=== PATIENT | female | born 1990 | race Caucasian/White ===

== ENCOUNTER 2016-09-30 22:00 | Emergency (ER) | payer SELFPAY ==
[2016-09-30 22:19] VITALS: BP 104/67
--- NOTE | 2016-09-30 22:33 | ER Document Report ---
ED Medical Screen (RME) - General Stated Complaint: ABDOMINAL PAIN Time seen by provider: 22:30 Mode of Arrival: Medic Information source: Patient Notes: 26-year-old female presents to ED for abdominal pain since about 8:30 tonight. She states this started out: CROSSED at the bottom where her scar is. Now it is mostly on the right side going up to the upper right. She states that the pain is sharp and when she moves it becomes much worse. States her pain is a 3 out of 5 constant and a 5 out of 5 at the worst. Patient has a Mirena and does not have menstrual periods. She has vomited once after the pain started but no nausea since then. I have greeted and performed a rapid initial assessment of this patient. A comprehensive ED assessment and evaluation of the patient, analysis of test results and completion of medical decision making process will be conducted by an additional ED providers. - Related Data Allergies/Adverse Reactions: No Known Allergies Allergy (Unverified 09/30/16 22:30) Physical Exam - Vital signs Vitals: Temp Pulse BP Pulse Ox 98.2 F 83 104/67 99 09/30/16 22:18 09/30/16 22:18 09/30/16 22:18 09/30/16 22:18 Course - Vital Signs Vital signs: Temp Pulse Resp BP Pulse Ox 98.2 F 83 104/67 99 09/30/16 22:18 09/30/16 22:18 09/30/16 22:18 09/30/16 22:18
[2016-09-30] MEDS ORDERED: ACETAMINOPHEN 325 MG TABLET PO ONE (22:34)
[2016-09-30 22:56] LABS: ABSOLUTE BASOPHILS # (AUTO) 0.1 10^3/uL (0.0-0.2); ABSOLUTE EOSINOPHILS # (AUTO) 0.2 10^3/uL (0.0-0.6); ABSOLUTE LYMPHOCYTES (AUTO) 1.8 10^3/uL (0.5-4.7); ABSOLUTE MONOCYTES (AUTO) 0.6 10^3/uL (0.1-1.4); ABSOLUTE NEUT (AUTO) 11.3 10^3/uL (1.7-8.2); BASOPHILS % (AUTO) 0.5 % (0-2); EOSINOPHILS % (AUTO) 1.2 % (0-6); HEMATOCRIT 38.7 % (36.0-47.0); HEMOGLOBIN 13.3 g/dL (12.0-15.5); HGB HCT DIFFERENCE 1.2; LYMPHOCYTES % (AUTO) 12.8 % (13-45); MEAN CORPUSCULAR HEMOGLOBIN 31.4 pg (27.0-33.4); MEAN CORPUSCULAR HGB CONC 34.3 g/dL (32.0-36.0); MEAN CORPUSCULAR VOLUME 92 fl (80-97); MONOCYTES % (AUTO) 4.4 % (3-13); RED BLOOD COUNT 4.23 10^6/uL (3.72-5.28); RED CELL DISTRIBUTION WIDTH 12.6 % (11.5-14.0); SEGMENTED NEUTROPHILS % (AUTO) 81.1 % (42-78); WHITE BLOOD COUNT 13.9 10^3/uL (4.0-10.5)
[2016-09-30 23:01] LABS: APPEARANCE,URINE CLEAR; BILIRUBIN,URINE NEGATIVE (NEGATIVE); GLUCOSE, URINE NEGATIVE (NEGATIVE); KETONES,URINE NEGATIVE (NEGATIVE); LEUKOCYTE ESTERASE,URINE NEGATIVE (NEGATIVE); NITRITE,URINE NEGATIVE (NEGATIVE); PROTEIN,URINE NEGATIVE (NEGATIVE); URINE SPECIFIC GRAVITY 1.015
[2016-09-30 23:09] LABS: ALANINE AMINOTRANSFERASE 33 U/L (9-52); ALBUMIN 4.8 g/dL (3.5-5.0); ALKALINE PHOSPHATASE 64 U/L (38-126); ANION GAP 12 (5-19); ASPARTATE AMINO TRANSFERASE 21 U/L (14-36); BILIRUBIN,TOTAL 0.5 mg/dL (0.2-1.3); BLOOD UREA NITROGEN 12 mg/dL (7-20); CALCIUM 9.8 mg/dL (8.4-10.2); CARBON DIOXIDE 21 mmol/L (22-30); CHLORIDE 107 mmol/L (98-107); CREATININE RESULT 0.56 mg/dL (0.52-1.25); GLUCOSE 96 mg/dL (75-110); POTASSIUM 4.3 mmol/L (3.6-5.0); SODIUM 139.7 mmol/L (137-145); TOTAL PROTEIN 7.5 g/dL (6.3-8.2)
== END 2016-10-01 01:07 | disposition left against medical advice (07) ==
LOC: ER 22:00
DX: R10.9 Unspecified abdominal pain (principal); R11.10 Vomiting, unspecified; Z97.5 Presence of (intrauterine) contraceptive device; Z53.20 Procedure and treatment not carried out because of patient's decision for unspecified reasons
CPT/HCPCS: 36415; 80053; 81001; 84703; 85025; 99281

== ENCOUNTER 2018-12-26 21:52 | Emergency (ER) | payer SELFPAY ==
[2018-12-26] MEDS ORDERED: DIPH/PERTUSS(ACELL)/TETANUS VAC/PF 0.5 ML SYR (>=10YO) IM ONE (22:43)
--- NOTE | 2018-12-26 22:48 | ER Document Report ---
ED Medical Screen (RME) - General Chief Complaint: Laceration Stated Complaint: FINGER LACERATION Time Seen by Provider: 12/26/18 22:36 Notes: 28-year-old female, chief complaint of accidentally cutting off the tip of her right middle finger. She is right-handed. Not up-to-date on tetanus. Denies any complaints. Denies any daily medications. TRAVEL OUTSIDE OF THE [place] IN LAST 30 DAYS: No - Related Data Allergies/Adverse Reactions: No Known Allergies Allergy (Unverified 09/30/16 22:30) Past Medical History Renal/ Medical History: Denies: Hx Peritoneal Dialysis Physical Exam - Vital signs Vitals: Temp Pulse Resp BP Pulse Ox 98.1 F 96 20 122/73 98 12/26/18 22:13 12/26/18 22:13 12/26/18 22:13 12/26/18 22:13 12/26/18 22:13 - Extremities General upper extremity: Other - Distal avulsion injury to the right third fingertip and finger nail with heavy bleeding. Remaining exam unremarkable. Course - Vital Signs Vital signs: Temp Pulse Resp BP Pulse Ox 98.1 F 96 20 122/73 98 12/26/18 22:13 12/26/18 22:13 12/26/18 22:13 12/26/18 22:13 12/26/18 22:13
--- NOTE | 2018-12-26 23:11 | RADIOLOGY REPORT (SQ) ---
EXAM DESCRIPTION: Right 3rd finger RadLex: XR FINGERS Views: 3 CLINICAL HISTORY: 28 years Female, cut off tip of finger COMPARISON: None. FINDINGS: There is focal soft tissue injury at the tip of the right 3rd finger. Phalanges remain intact. No acute fracture or dislocation. No hyperdense foreign bodies. IMPRESSION: 1. Soft tissue injury at the tip of the right 3rd finger. 2. No acute fracture or dislocation.
[2018-12-27] MEDS ORDERED: BUPIVACAINE HCL 0.5 % INJ/PF 30 ML SDV INJ ONE (00:57)
--- NOTE | 2018-12-27 01:03 | ER Document Report ---
ED General - General Chief Complaint: Laceration Stated Complaint: FINGER LACERATION Time Seen by Provider: 12/26/18 22:36 Mode of Arrival: Ambulatory Information source: Patient TRAVEL OUTSIDE OF THE [place] IN LAST 30 DAYS: No - HPI Patient complains to provider of: Injury to the tip of the right middle finger Onset: Just prior to arrival Onset/Duration: Sudden Quality of pain: Sharp Severity: Severe Pain Level: 4 Associated symptoms: None Exacerbated by: Denies Relieved by: Denies Similar symptoms previously: No Recently seen / treated by doctor: No Notes: 28-year-old female coming in today with chief complaint of right middle fingertip injury. She was cutting potatoes with a new mandolin slicing tool. Unfortunately, it sliced the tip of her right middle finger off in the process. Tetanus shot was updated here. - Related Data Allergies/Adverse Reactions: No Known Allergies Allergy (Unverified 09/30/16 22:30) Past Medical History - General Information source: Patient - Social History Smoking Status: Unknown if Ever Smoked Family History: Reviewed & Not Pertinent Patient has suicidal ideation: No Patient has homicidal ideation: No Renal/ Medical History: Denies: Hx Peritoneal Dialysis Review of Systems - Review of Systems Notes: Constitutional: No fevers. No chills. EENT: No eye redness. No eye pain. No ear pain. No sore throat. Cardiovascular: No chest pain. No palpitations. Respiratory: No cough. No shortness of breath. No respiratory distress. Gastrointestinal: No abdominal pain. No nausea, vomiting, or diarrhea. Genitourinary: Atraumatic. No lesions. No pain. No discharge. Musculoskeletal: Positive for injury to right middle finger Skin: No rash or lesions. Lymphatic: No swollen lymph nodes. Neurologic: No headache. No syncope. Psychiatric: No suicidal or homicidal ideation. Physical Exam - Vital signs Vitals: Temp Pulse Resp BP Pulse Ox 98.1 F 96 20 122/73 98 12/26/18 22:13 12/26/18 22:13 12/26/18 22:13 12/26/18 22:13 12/26/18 22:13 - Notes Notes: General: Well-developed, well-nourished. In no acute distress. Non-toxic appearing. Cardiac: Well-perfused. Regular rate and rhythm. No murmurs, rubs, or gallops. Pulmonary: No respiratory distress. No cyanosis. Bilateral lung fiels are clear to auscultation. Abdominal: Non-distended. Non-rigid. Bowels sounds are present in all four quadrants. No guarding or rebound. HEENT: Head is atraumatic. Conjunctivae not reddened. No tearing. PERRL. EOMI. Orbits atraumatic. No periorbital swelling or erythema. Oropharynx is without erythema, swelling, or exudates. Neck: Supple. No adenopathy. No meningismus. Dermatologic: Warm with good turgor. No rash. Atraumatic. Chest: Atraumatic. No chest wall tenderness to palpation. Musculoskeletal: There is a 0.5 cm skin and partial nail avulsion from the distal tip of the right middle finger. There is an active venous bleeder. The remainder of the proximal nail is intact. There is no bony exposure. Genitourinary: Examination deferred Neurologic: No gross neurologic deficits. Psychiatric: Normal mood. Course - Re-evaluation Re-evalutation: 12/27/18 01:38 The x-ray of the right middle finger is negative for bony involvement. We will do the digital block of the finger with Marcaine and plain lidocaine so that the patient will have prolonged anesthetic effect. We will then take the dressing off and evaluate further. - Vital Signs Vital signs: Temp Pulse Resp BP Pulse Ox 98.1 F 96 20 122/73 98 12/26/18 22:13 12/26/18 22:13 12/26/18 22:13 12/26/18 22:13 12/26/18 22:13 Procedures - Laceration/Wound Repair Right middle fingertip Time completed: 01:39 Wound length (cm): 0.5 Wound's Depth, Shape: Superficial, Nail-avulsed - The tip of the distal fingernail of the right middle finger was avulsed. The remainder of the nail is fully intact and attached Laceration pre-procedure: Sterile PPE donned, Sterile drapes applied, Shur-Clens applied Anesthetic type: Other - A digital block using 4 mL's of 1% plain lidocaine and 4 mL's of 0.5% bupivacaine was injected at 4 points at the base of the right middle finger. Complete anesthesia was achieved using this method Volume Anesthetic (mLs): 8 Wound explored: Clean Wound Repaired With: Thrombi pad - Hemostatic dressing was applied to the exposed skin and then a tight compressive dressing to assist with hemostasis was applied. Layer Closure?: No Post-procedure NV exam normal: Yes Complications: No Discharge - Discharge Clinical Impression: Fingertip avulsion Qualifiers: Encounter type: initial encounter Qualified Code(s): S61.209A - Unspecified open wound of unspecified finger without damage to nail, initial encounter Condition: Good Disposition: HOME, SELF-CARE Instructions: Antibiotic Ointment Protection ([facility]), Laceration Care ([facility]), Prophylactic Antibiotic ([facility]), Soap Cleansing ([facility]), Tetanus Immunization Given ([facility]), Oral Narcotic Medication ([facility]) Additional Instructions: Wound needs to be rechecked in 48 to 72 hours. You may return to the emergency department to have us recheck it to make sure is healing okay. Please keep the special dressing you have been given clean and dry until you are seen again. Prescriptions: Cephalexin Monohydrate [Keflex 500 mg Capsule] 500 mg PO TID 5 Days #15 capsule Forms: Return to Work Referrals: ROBERTO KOENIG PA-C [Emergency Provider] - 12/29/18
[2018-12-27] MEDS ORDERED: CEPHALEXIN 500 MG CAPSULE PO ONE (01:43)
[2018-12-27] MEDS ORDERED: HYDROCODONE/ACETAMINOPHEN 5-325 MG (6 TAB/ER DISP) PO PRN (01:44)
[2018-12-27 01:58] VITALS: BP 127/74
== END 2018-12-27 01:58 | disposition home or self-care (01) ==
LOC: ER 21:52
DX: S61.302A Unspecified open wound of right middle finger with damage to nail, initial encounter (principal); W26.8XXA Contact with other sharp object(s), not elsewhere classified, initial encounter; Y93.G9 Activity, other involving cooking and grilling; Z23 Encounter for immunization
CPT/HCPCS: 99283; 90471; 73140; 90715; 64450; J3490